=== PATIENT | female | born 1945 | race Caucasian/White ===

== ENCOUNTER 2018-10-21 17:04 | Inpatient (IN) | payer MEDICARE, OTHER ==
[~2018-10-21] VITALS: Ht 167.6 cm; Wt 96.6 kg
[2018-10-21 18:28] LABS: BASOPHILS % 0.5 % (0.0-1.0); EOSINOPHILS # (AUTO) 0.4 (0.0-0.4); EOSINOPHILS % 4.1 % (0.0-6.0); HEMATOCRIT 36.1 % (34.2-44.1); LYMPHOCYTES # (AUTO) 2.8 (1.0-3.2); LYMPHOCYTES % 33.1 % (18.0-39.1); MEAN CORPUSCULAR HEMOGLOBIN 29.1 pg (28-32); MEAN CORPUSCULAR HGB CONC 33.2 g/dL (31-35); MEAN CORPUSCULAR VOLUME 87.6 fL (81-99); MONOCYTES # (AUTO) 0.9 (0.2-0.8); MONOCYTES % 10.3 % (4.4-11.3); NEUTROPHILS # (AUTO) 4.4 (2.1-6.9); NEUTROPHILS % 51.8 % (38.7-80.0); PLATELET COUNT 171 x10e3/uL (140-360); RED BLOOD COUNT 4.12 x10e6/uL (3.6-5.1); RED CELL DISTRIBUTION WIDTH 17.8 % (11.7-14.4)
[2018-10-21 18:32] LABS: INR 0.89; PARTIAL THROMBOPLASTIN TIME 26.9 seconds (23.8-35.5); PROTHROMBIN TIME 12.9 seconds (11.9-14.5)
[2018-10-21 18:39] LABS: ALBUMIN/GLOBULIN RATIO 1.1 (0.8-2.0); ANION GAP 12.1 mmol/L (8-16); CALCIUM 8.8 mg/dL (8.4-10.2); CREATININE, SERUM 1.2 mg/dL (0.57-1.11)
[2018-10-21 18:46] LABS: CREATINE KINASE MB 4.4 ng/mL (0-5.0)
[2018-10-21 18:48] LABS: POTASSIUM 2.1 mmol/L (3.5-5.1)
[2018-10-21] MEDS ORDERED: POTASSIUM CHLORIDE 10MEQ/100ML 100 ML IV ONE (19:00)
--- NOTE | 2018-10-21 19:13 | Diagnostic Imaging Report ---
EXAMINATION: CHEST SINGLE (PORTABLE) INDICATION: ^CHEST PAIN ^20181021 ^1850 ^Y COMPARISON: None FINDINGS: AP view TUBES and LINES: None. LUNGS: Limited by body habitus and low lung volumes. Medial right basilar patchy opacities. Retrocardiac hazy opacification. PLEURA: No significant pleural effusion or pneumothorax. HEART AND MEDIASTINUM: The cardiomediastinal silhouette is enlarged on this AP view. Aorta is mildly calcified and tortuous. BONES AND SOFT TISSUES: No acute osseous lesion. Soft tissues are unremarkable. UPPER ABDOMEN: No free air under the diaphragm. IMPRESSION: Mild bibasilar p opacities, representing subsegmental atelectasis and/or pneumonia. Small left pleural effusion cannot be excluded. Signed by: Dr. Diogo Almanza MD on 10/21/2018 7:09 PM
--- OUTSIDE RECORDS SUMMARY | 2018-10-21 19:16 | XMS REPORT ---
Author Author [facility] Address Unknown Phone Unavailable Care Team Providers Care Production Mechanic Tin Cans Name Role Phone Nora ARAUJO Unavailable Unavailable Problems This patient has no known problems. Allergies, Adverse Reactions, Alerts This patient has no known allergies or adverse reactions. Medications This patient has no known medications. Results Test Description Test Time Test Comments Text Results Atomic Results Result Comments CHEST SINGLE (PORTABLE) 2018-10-21 19:07:00 [place] [address] Patient Name: CHRISTOFER CARDENAS MR #: [id number] : 1945 Age/Sex: 73/F Req #: [id number] Adm Physician: Ordered by: JEM ARAUJO MD Report #: [id number] Location: ER Room/Bed: Procedure: [id number] DX/CHEST SINGLE (PORTABLE) Exam Date: 10/21/18 Exam Time: 1849 REPORT STATUS: Signed EXAMINATION: CHEST SINGLE (PORTABLE) INDICATI ON: CHEST PAIN 20181021 Y COMPARISON: None FINDINGS: AP view TUBES and LINES: None. LUNGS: Limited by body habitus and low lung volumes. Medial right basilar patchy opacities. Retrocardiac hazy opacification. PLEURA: No significant pleural effusion or pneumothorax. HEART AND MEDIASTINUM: The cardiomediastinal silhouette is enlarged on this AP view. Aorta is mildly calcified and tortuous. BONES AND SOFT TISSUES: No acute osseous lesion. Soft tissues are unremarkable. UPPER ABDOMEN: No free air under the diaphragm. IMPRESSION: Mild bibasilar p opacities, representing subsegmental atelectasis and/or pneumonia. Small left pleural effusion cannot be excluded. Signed by: Dr. Diogo Waters MD on 10/21/2018 7:09 PM Dictated By: DIOGO WATERS MD 08 Transcribed By: TJ on 10/21/181908 COPY TO: JEM ARAUJO MD CT, BRAIN, WITHOUT CONTRAST 2018-07-28 16:54:[address] head without contrast 07/28/2018 4:53 PM CLINICAL HISTORY: Unspecified dementia with behavioral disturbance TECHNIQUE: Axial noncontrast CT images through the head were obtained. This examination was performed according to our departmental dose optimization program, which includes automated exposure control, adjustment of the mA and/or kV according to patient size, and/or use of iterated reconstruction technique. COMPARISON: None available FINDINGS: There is no hemorrhage, extra-axial collection, mass, hydrocephalus, or midline shift. There is mild microvascular ischemia in the supratentorial white matter. There is generalized parenchymal volume loss. The paranasal sinuses and mastoid air cells are well aerated. The skull is intact. There is a punctate calcification in the superficial lobe of the left parotid gland. IMPRESSION: No intracranial hemorrhage or mass effect. Chronic appearing microvascular and involutional changes. If concern for acute pathology persists, further evaluation with MRI is recommended. Signed: Abdi Harp MDR[facility] Verified Date/Time: 07/28/2018 16:54:45 Reading Location: [facility] B1 C013V Neuro Reading Room
--- OUTSIDE RECORDS SUMMARY | 2018-10-21 19:16 | XMS REPORT | Clinical Summary ---
Author Author [facility] Organization [facility] Address Unknown Phone Unavailable Care Team Providers Care Experimental Mechanic Electrical Name Role Phone Kenan Murdock MD PCP Allergies Not on File Medications Not on file Active Problems Not on file Encounters Care Team Description Date Type Specialty Kenan Murdock MD Alzheimer's dementia with behavioral disturbance, unspecified timing of dementia onset 07/28/2018 Hospital Radiology Encounter Kenan Murdock MD Alzheimer's dementia with behavioral disturbance, unspecified timing of dementia onset (Primary Dx) 2018 Outside Orders Central Scheduling after 10/20/2017 Social History Date Tobacco Use Types Packs/Day Years Used Never Assessed Sex Assigned at Date Recorded Not on file Industry Job Start Date Occupation Not on file Not on file Not on file Travel End Travel History Travel Start No recent travel history available. Last Filed Vital Signs Not on file Plan of Treatment Not on file Procedures Comments Procedure Name Priority Date/Time Associated Diagnosis CT BRAIN WITHOUT IV Routine 07/28/2018 Alzheimer's dementia with CONTRAST 4:08 PM CDT behavioral disturbance, unspecified timing of dementia onset after 10/20/2017 Results * CT Brain without IV Contrast (07/28/2018 4:08 PM CDT) Narrative Performed At FINAL REPORT [employer] [facility] CT head without contrast 07/28/2018 4:53 PM [...] evaluation with MRI is recommended. Signed: Abdi Fuentes MD Report Verified Date/Time:07/28/2018 16:54:45 Reading Location: [address] Neuro Reading Room Procedure Note Interface, External Ris In - 07/28/2018 4:56 PM CDT FINAL REPORT CT head without contrast 07/28/2018 [...] evaluation with MRI is recommended. Signed: Abdi Fuentes MD Report Verified Date/Time: 07/28/2018 16:54:45 Reading Location: [address] Neuro Reading Room Performing Organization Address City/State/Zipcode Phone Number RIS after 10/20/2017 Insurance Payer Benefit Subscriber ID Type Phone Address Plan / Group MEDICARE MEDICARE A xxxxxxxxxx Medicare B MCR SUPPLEMENT/INDIVIDUAL GENERIC xxxxxxxxx [employer] MEDICARE SUPPLEMENT
[2018-10-21] MEDS ORDERED: POTASSIUM CHLORIDE 10MEQ EA PO SCH (20:00)
[2018-10-21] MEDS ORDERED: POTASSIUM CHLORIDE 10MEQ/100ML 300 ML IV ONE (21:00)
[2018-10-21] MEDS ORDERED: ROPINIROLE HCL1 MG PO (21:28)
[2018-10-21] MEDS ORDERED: CYMBALTA30 MG PO (21:28)
[2018-10-21] MEDS ORDERED: LEVOTHYROXINE112 MCG PO (21:28)
[2018-10-21] MEDS ORDERED: LOSARTAN-HCTZ1 EAC1 PO (21:28)
[2018-10-21] MEDS ORDERED: CARVEDILOL12.5 MG PO (21:28)
[2018-10-21] MEDS ORDERED: AMITIZA24 MCG PO (21:28)
[2018-10-21] MEDS ORDERED: SEROQUEL25 MG PO (21:28)
[2018-10-21] MEDS ORDERED: PROPRANOLOL HCL80 MG PO (21:28)
[2018-10-21] MEDS ORDERED: TRAZODONE HCL50 MG PO (21:28)
[2018-10-21] MEDS ORDERED: MAGNESIUM SULFATE 2GM/50ML 50 ML IV ONE (21:30)
--- NOTE | 2018-10-22 05:21 | NUR ---
PATIENT HAS NO PRESSURE ULCER TO SACRUM OR BACK
[2018-10-22 05:45] LABS: BASOPHILS % 0.5 % (0.0-1.0); EOSINOPHILS # (AUTO) 0.3 (0.0-0.4); EOSINOPHILS % 4.4 % (0.0-6.0); HEMATOCRIT 34.2 % (34.2-44.1); HEMOGLOBIN 11.1 g/dL (12.0-16.0); LYMPHOCYTES # (AUTO) 3.2 (1.0-3.2); LYMPHOCYTES % 43.5 % (18.0-39.1); MEAN CORPUSCULAR HEMOGLOBIN 28.9 pg (28-32); MEAN CORPUSCULAR HGB CONC 32.5 g/dL (31-35); MEAN CORPUSCULAR VOLUME 89.1 fL (81-99); MONOCYTES # (AUTO) 0.7 (0.2-0.8); MONOCYTES % 9.4 % (4.4-11.3); NEUTROPHILS # (AUTO) 3.1 (2.1-6.9); NEUTROPHILS % 42.1 % (38.7-80.0); PLATELET COUNT 151 x10e3/uL (140-360); RED BLOOD COUNT 3.84 x10e6/uL (3.6-5.1); RED CELL DISTRIBUTION WIDTH 17.9 % (11.7-14.4)
[2018-10-22 06:15] LABS: ALBUMIN 2.7 g/dL (3.5-5.0); ALBUMIN/GLOBULIN RATIO 1.1 (0.8-2.0); ANION GAP 12.6 mmol/L (8-16); CALCIUM 8.4 mg/dL (8.4-10.2); CREATININE, SERUM 1.02 mg/dL (0.57-1.11); MAGNESIUM 1.4 MG/DL (1.3-2.1)
[2018-10-22 06:17] LABS: POTASSIUM 2.6 mmol/L (3.5-5.1)
[2018-10-22 06:22] LABS: CREATINE KINASE MB 2.5 ng/mL (0-5.0)
[2018-10-22] MEDS ORDERED: MAGNESIUM SULFATE 2GM/50ML 50 ML IV ONE (06:30)
[2018-10-22] MEDS ORDERED: POTASSIUM CHLORIDE 20MEQ/15ML UDC PO ONE (06:30)
[2018-10-22] MEDS ORDERED: MAGNESIUM SULF 1GRAM/DEXTROSE 100 ML IV ONE ×2 (06:30→11:15)
[2018-10-22] MEDS: POTASSIUM CHLORIDE 10MEQ/100ML 100 ML IV SCH ×4 (06:38→09:45)
--- NOTE | 2018-10-22 06:58 | NUR ---
RECEIVED REPORT FROM CAROLIN FOR CONTINUATION OF CARE
--- NOTE | 2018-10-22 06:58 | NUR ---
REPORT GIVEN TO LEO ESCALONA
--- NOTE | 2018-10-22 07:53 | NUR ---
BREAKFAST TRAY DELIVERED. PATIENT WAS REPOSITIONED IN BED TO EAT. FAMILY AT BEDSIDE FEEDING PATIENT.
[2018-10-22] MEDS ORDERED: POTASSIUM CHLORIDE 20MEQ/100ML 200 ML IV ONE (08:00)
[2018-10-22] MEDS ORDERED: HYDRALAZINE HCL 20 MG/ML VIAL IV PRN (08:15)
[2018-10-22] MEDS ORDERED: ONDANSETRON HCL INJ 2 MG/ML VIAL IV PRN (08:15)
[2018-10-22] MEDS ORDERED: POTASSIUM CHLORIDE 20 MEQ TAB CR PO NR (08:30)
--- NOTE | 2018-10-22 09:58 | NUR ---
VENOUS DOPPLER IN PROGRESS AT BEDSIDE
--- NOTE | 2018-10-22 10:40 | NUR ---
INCONTINENCE CARE DONE. PT HAD SMALL BM
[2018-10-22] MEDS: ROPINIROLE HCL 1 MG TAB PO SCH ×3 (10:45→21:41)
[2018-10-22] MEDS: QUETIAPINE FUMARATE 25 MG TAB PO SCH ×2 (10:45→21:42)
[2018-10-22] MEDS: DULOXETINE HCL 30 MG DELAYED RELEASE PO SCH ×2 (10:45→17:22)
[2018-10-22] MEDS: METOCLOPRAMIDE HCL 10 MG/2ML VIAL IV SCH ×3 (10:58→21:47)
[2018-10-22] MEDS: LUBIPROSTONE 24 MCG CAP PO SCH (11:01)
--- NOTE | 2018-10-22 13:00 | NUR ---
WILL PASS ON IN REPORT TO RECEIVING NURSE THAT WE HAVE BEEN UNABLE TO COLLECT THE URINE YET. EACH TIME THAT WE TRIED TO COLLECT THE PATIENT HAD BOWEL MOVEMENT MIXED IN WITH THE URINE AND HAVE NOT ABLE TO DO STRAIGHT CATH BECAUSE PATIENT BECOMES VERY COMBATIVE AND CONTINUOUSLY KICKS AND HITS
--- NOTE | 2018-10-22 13:15 | NUR ---
REPORT GIVEN TO JUANA FOR ADMIT. UPDATED FAMILY ON ROOM ASSIGNMENT.
[2018-10-22 14:00] VITALS: BP 113/87
--- NOTE | 2018-10-22 15:00 | NUR ---
PT ALERT TO SELF, RESP EVEN AND UNLABORED, SOME CONFUSION AT THIS TIME, PT NOT ABLE TO MAKE NEEDS KNOWN, PT HAS FAMILY MEMBER AT BEDSIDE, PT ORIENTED TO ROOM AND CALL LIGHT, BED IN LOWEST POSITION, BED RAILS UP X 2. CALL LIGHT IN REACH.
[2018-10-22] MEDS ORDERED: ALPRAZOLAM 0.5 MG TAB PO PRN (15:30)
[2018-10-22 15:45] VITALS: BP 113/87
[2018-10-22 15:59] LABS: CREATINE KINASE MB 4.2 ng/mL (0-5.0)
--- NOTE | 2018-10-22 16:00 | NUR ---
Drapery Cutter Machine to bedside to discuss plan of care with patient/family. CM/SW role and care transitions discussed. Anticipated discharge plan discussed along with duration of care. CM/SW discussed patients right to make decisions in care. CM/SW work hours given. Patient lives: at [facility], her lives there and cares for her in the evening. Pt is taken to Memory Care during the day Admit/Transfer: Admit thru ED POA/Emergency contact: son Pieter Madera [phone] Current/Previous Home Health: Per son, will be set up thru [facility] once she returns PCP/Follow-up Care: Current/Previous DME: walker, mainly uses wheelchair Other Services: n/a Employment Status: n/a Areas of Concerns: n/a Referral Needs: n/a Education Needs: n/a IMM/DIAZ given and signed (if applicable): DIAZ Goal for discharge: return to [facility], son will provide transportation CM/SW left business card at the bedside with contact information. Name and number was also written on the patients whiteboard. Patient verbalized understanding of discussion. CM will follow-up with ongoing discharge and transition of care needs.
[2018-10-22 16:22] VITALS: BP 113/87
--- NOTE | 2018-10-22 19:02 | NUR ---
REPORT GIVEN TO ONCOMING NURSE.
[2018-10-22] MEDS: ACETAMINOPHEN 325 MG TAB PO PRN (19:36)
[2018-10-22] MEDS: TRAZODONE HCL 50 MG TAB PO SCH (21:41)
[2018-10-22 21:47] VITALS: BP 113/87
[2018-10-23] VITALS (7 sets, daily range): BP systolic 92–103; BP diastolic 54–78
[2018-10-23 04:45] LABS: BASOPHILS # (AUTO) 0.1 (0.0-0.1); BASOPHILS % 0.5 % (0.0-1.0); EOSINOPHILS # (AUTO) 0.4 (0.0-0.4); EOSINOPHILS % 3.4 % (0.0-6.0); HEMATOCRIT 42.3 % (34.2-44.1); HEMOGLOBIN 13.8 g/dL (12.0-16.0); LYMPHOCYTES # (AUTO) 3.9 (1.0-3.2); LYMPHOCYTES % 37.9 % (18.0-39.1); MEAN CORPUSCULAR HEMOGLOBIN 29.4 pg (28-32); MEAN CORPUSCULAR HGB CONC 32.6 g/dL (31-35); MONOCYTES # (AUTO) 0.7 (0.2-0.8); MONOCYTES % 6.7 % (4.4-11.3); NEUTROPHILS # (AUTO) 5.3 (2.1-6.9); NEUTROPHILS % 51.1 % (38.7-80.0); PLATELET COUNT 204 x10e3/uL (140-360); RED CELL DISTRIBUTION WIDTH 18.1 % (11.7-14.4)
[2018-10-23 05:27] LABS: ANION GAP 15.6 mmol/L (8-16); CREATININE, SERUM 1.05 mg/dL (0.57-1.11)
[2018-10-23 05:52] LABS: POTASSIUM 2.6 mmol/L (3.5-5.1)
[2018-10-23] MEDS ORDERED: LEVOTHYROXINE SODIUM 112 MCG TAB PO SCH (06:00)
[2018-10-23] MEDS ORDERED: LEVOTHYROXINE SODIUM 75 MCG TAB PO SCH (06:00)
--- NOTE | 2018-10-23 06:23 | NUR ---
CALL PLACED TO DR DRUMMOND NUMBER,SPOKE WITH JESSIE SHIELDS OF DR DRUMMOND,NOTIFIED PT'S POTASSIUM LEVEL,N/O RECEIVED AND ENTERED.
[2018-10-23 06:45] LABS: FREE T4 (FREE THYROXINE) 1.08 ng/dL (0.9-1.8); THYROID STIMULATING HORMONE 42.89 uIU/mL (0.350-4.940)
[2018-10-23] MEDS ORDERED: POTASSIUM CHLORIDE 20MEQ/100ML 300 ML IV ONE (07:00)
--- NOTE | 2018-10-23 07:12 | NUR ---
REPORT GIVEN TO ONCOMING NURSE,WALKING ROUNDS MADE.
[2018-10-23] MEDS: DULOXETINE HCL 30 MG DELAYED RELEASE PO SCH ×2 (09:14→17:33)
[2018-10-23] MEDS: ROPINIROLE HCL 1 MG TAB PO SCH ×3 (09:14→21:00)
[2018-10-23] MEDS: LUBIPROSTONE 24 MCG CAP PO SCH (09:14)
[2018-10-23] MEDS: QUETIAPINE FUMARATE 25 MG TAB PO SCH ×2 (09:14→21:00)
[2018-10-23] MEDS ORDERED: POTASSIUM CHLORIDE 20MEQ/100ML 200 ML IV ONE (09:30)
[2018-10-23] MEDS: METOCLOPRAMIDE HCL 10 MG/2ML VIAL IV SCH ×4 (10:21→21:00)
[2018-10-23] MEDS: CEFTRIAXONE SOD 1 GM VIAL IV SCH ×2 (10:21→21:05)
[2018-10-23 10:40] LABS: CLARITY,URINE CLEAR (CLEAR); COLOR,URINE YELLOW (YELLOW); LEUKOCYTE ESTERASE ,URINE NEGATIVE (NEGATIVE)
[2018-10-23 10:41] LABS: BILIRUBIN,URINE NEGATIVE (NEGATIVE); KETONES,URINE NEGATIVE (NEGATIVE); NITRITE,URINE NEGATIVE (NEGATIVE); PROTEIN,URINE DIPSTICK NEGATIVE (NEGATIVE); URINE UROBILINOGEN 0.2 mg/dL (0.2 - 1)
[2018-10-23 11:03] LABS: BACTERIA,URINE FEW /HPF; EPITHELIAL CELLS,URINE MANY /LPF; RBC,URINE 0-5 /HPF (0-5); WBC,URINE (MAN) 0-5 /HPF (0-5)
--- NOTE | 2018-10-23 14:35 | Consultation ---
DATE OF CONSULTATION: October 23, 2018 REQUESTING PHYSICIAN: Dr. Marmolejo/Zuly Jasmine. REASON FOR CONSULTATION: Elevated troponin. HISTORY OF PRESENT ILLNESS: Ms. Madera is a 73-year-old lady with past medical history as listed below who was recently admitted to [facility] for dementia. Apparently, she had blood test drawn. The potassium was low and so she was sent to the hospital. Patient has advanced dementia. No history can be obtained from the patient. There are few family members at the bedside who relate most of the history. Patient apparently had symptoms of dementia in 2012 and has progressively worsened especially in the last 4 to 5 weeks. There is no history of chest pain, shortness of breath, or palpitations. There is no history of known coronary artery disease. Family do not want any aggressive measures or even considering hospice. She was noted to have elevated troponin, so I was consulted. REVIEW OF SYMPTOMS: Not obtainable. ALLERGIES: PENICILLIN AND NITROFURANTOIN. MEDICATIONS: See list. PAST MEDICAL HISTORY 1. History of hypertension. 2. History of dementia. 3. History of depression. 4. History hypothyroidism. 5. History of irritable bowel syndrome. 6. History of restless leg syndrome. PAST SURGICAL HISTORY 1. History of having had back surgery twice. 2. History of elbow surgery. 3. History of hysterectomy. 4. 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 5. History of hemorrhoidectomy. SOCIAL HISTORY: Does not smoke or drink. FAMILY HISTORY: Noncontributory. PHYSICAL EXAMINATION GENERAL: Well-built and nourished lady, who is awake, confused. VITAL SIGNS: Heart rate is 84, blood pressure is 99/74, respiratory rate is 18. HEENT: Atraumatic. NECK: No JVD, bruit, thyromegaly, or lymphadenopathy. CARDIOVASCULAR: First and second heart sounds heard. No murmurs, rubs, or gallops appreciated. CHEST: Decreased air entry at the bases. No adventitious sounds appreciated. ABDOMEN: Soft, nontender. EXTREMITIES: Trace edema. LABS: WBC is 10.2, hemoglobin is 13.8, hematocrit is 42.3, and platelets are 204. Sodium is 135, potassium 2.6, chloride 99, bicarb is 23, BUN is 12, creatinine 1.0, glucose is 114. Troponin is 0.056, 0.028, 0.710. TSH is 42.8. IMPRESSION 1. Hypokalemia. 2. Advanced dementia. 3. History of hypertension. 4. History of hypothyroidism. 5. History of depression. PLAN 1. Potassium is being supplemented. 2. Troponins are borderline. Patient has no chest pain. 3. Will get an echocardiogram to assess LV function and valvular function. 4. Family do not want any aggressive measures, want to keep her comfortable. 5. Will add baby aspirin to her regimen. 6. Will add statin. 7. Continue with other medications. 8. Discussed my impression and plan of management with the family and they understand. As always, I appreciate and thank you very much for your referrals Job#: [id number] KYLEIGH
[2018-10-23] MEDS ORDERED: METOPROLOL TARTRATE 25 MG TAB PO SCH (17:00)
--- NOTE | 2018-10-23 17:06 | NUR ---
FAMILY AT BEDSIDE. IMM LETTER EXPLAINED. MPOA / SON SIGNED. COPY TO CHART AND COPY TO FAMILY. INSTRUCTED TO KEEP ALL INFO IN THEIR TRANSITION CARE FOLDER. VERBALIZED UNDERSTANDING. FAMILY EXPRESSED THAT THEY DO NOT WANT THE PT TO RECEIVE ANYTHING EXTRA OUTSIDE OF THE K INFUSION. THEY STATE IF THE PT HAS ANOTHER EPISODE OF THE K DROPPING, THEY WILL SEEK HOSPICE AT THAT TIME. STATE THE PT HAS ALZHEIMER'S AND THEY KNOW IT IS NOT GETTING ANY BETTER AND DO NOT WISH TO HAVE ANY EXTREME MEASURES TAKEN, NO GTUBE, NO ECHO. CM VERBALIZED UNDERSTANDING SHARED THIS INFO W BEDSIDE NURSE. SHE WAS ALREADY AWARE. DISCUSSED DNR W BEDSIDE NURSE. INFORMED PT HAD AN OUT OF HOSPITAL DNR PER THE FAMILY.
[2018-10-23] MEDS: ACETAMINOPHEN 325 MG TAB PO PRN (17:32)
[2018-10-23] MEDS ORDERED: MELATONIN 3 MG TAB PO SCH (21:00)
[2018-10-23] MEDS: TRAZODONE HCL 50 MG TAB PO SCH (21:00)
[2018-10-23] MEDS ORDERED: ATORVASTATIN 20 MG TAB PO SCH (21:00)
[2018-10-24 00:45] VITALS: BP 106/68
--- NOTE | 2018-10-24 03:17 | NUR ---
PT RESTING IN BED WITH NO S/S OF DISTRESS.RESPIRATIONS EVEN/NON LABORED.BLOOD DRAWN FOR LAB AT THIS TIME,PT TOLERATED WELL.BED ALARM ON.BED IN LOWEST/LOCKED POSITION.CALL LIGHT WITHIN EASY REACH.
[2018-10-24 03:23] LABS: BASOPHILS % 0.3 % (0.0-1.0); EOSINOPHILS # (AUTO) 0.4 (0.0-0.4); EOSINOPHILS % 3.4 % (0.0-6.0); HEMATOCRIT 36.9 % (34.2-44.1); HEMOGLOBIN 12.2 g/dL (12.0-16.0); LYMPHOCYTES # (AUTO) 3.3 (1.0-3.2); LYMPHOCYTES % 28.3 % (18.0-39.1); MEAN CORPUSCULAR HEMOGLOBIN 29.5 pg (28-32); MEAN CORPUSCULAR HGB CONC 33.1 g/dL (31-35); MEAN CORPUSCULAR VOLUME 89.3 fL (81-99); MONOCYTES # (AUTO) 1.1 (0.2-0.8); MONOCYTES % 9.5 % (4.4-11.3); NEUTROPHILS # (AUTO) 6.7 (2.1-6.9); NEUTROPHILS % 58.2 % (38.7-80.0); PLATELET COUNT 172 x10e3/uL (140-360); RED BLOOD COUNT 4.13 x10e6/uL (3.6-5.1); RED CELL DISTRIBUTION WIDTH 18.2 % (11.7-14.4)
[2018-10-24 03:38] LABS: CREATININE, SERUM 1.16 mg/dL (0.57-1.11); MAGNESIUM 1.5 MG/DL (1.3-2.1)
[2018-10-24 05:00] VITALS: BP 100/72
[2018-10-24] MEDS ORDERED: LEVOTHYROXINE SODIUM 100 MCG TAB PO SCH (06:00)
[2018-10-24] MEDS ORDERED: LEVOTHYROXINE SODIUM 75 MCG TAB PO SCH (06:00)
--- NOTE | 2018-10-24 06:13 | NUR ---
CALLED LUH KHAN TO REPORT POTASSIUM LEVEL OF 3.0,NO NEW ORDERS RECEIVED AT THIS TIME,[facility]H KHAN STATED THAT ITS NOT CRITICAL.
--- NOTE | 2018-10-24 07:09 | NUR ---
REPORT GIVEN TO ONCOMING NURSE,WALKING ROUNDS MADE.
[2018-10-24 07:30] VITALS: BP 100/72
[2018-10-24] MEDS: METOCLOPRAMIDE HCL 10 MG/2ML VIAL IV SCH (07:30)
[2018-10-24] MEDS ORDERED: POTASSIUM CHLORIDE 20MEQ/100ML 300 ML IV ONE (08:00)
[2018-10-24] MEDS: LUBIPROSTONE 24 MCG CAP PO SCH ×2 (08:00→09:15)
[2018-10-24] MEDS ORDERED: FUROSEMIDE INJ 10 MG/ML 2 ML VIAL IV NR (08:15)
[2018-10-24] MEDS: ROPINIROLE HCL 1 MG TAB PO SCH (09:00)
[2018-10-24] MEDS: DULOXETINE HCL 30 MG DELAYED RELEASE PO SCH (09:00)
[2018-10-24] MEDS: QUETIAPINE FUMARATE 25 MG TAB PO SCH (09:00)
[2018-10-24] MEDS ORDERED: ASPIRIN 81 MG CHEW TAB PO SCH (09:00)
[2018-10-24] MEDS ORDERED: ASPIRIN 325 MG TAB PO SCH (09:00)
[2018-10-24 09:16] VITALS: BP 98/52
--- NOTE | 2018-10-24 10:40 | NUR ---
Initiated contact with [facility] @ [phone] to advocate for the family to place the patient, Leslie Madera, on hospice care starting today. The family verbalized that they would like to withdraw treatment at this time and "let nature take its course". The son, the SAMANTA, (copy in the chart), expressed that the family chose [facility] and he spoke with the patients shelter, [facility] where [facility] has a relationship. The family is aware that the publications sales representative from Hospice will be coming today to obtain consent and explain what Hospice has to offer. Jaimie, the AOC this weekend, called @ 10:55 and explained to me that the nurse will not be able to evaluate the patient until tomorrow, Thursday10/25/18.
[2018-10-24] MEDS ORDERED: ONDANSETRON HCL INJ 2 MG/ML VIAL IV PRN (11:00)
[2018-10-24] MEDS ORDERED: LORAZEPAM 1 MG TAB PO PRN (11:00)
[2018-10-24] MEDS ORDERED: ALBUTEROL/IPRATROPIUM 3 ML NEB NEB PRN (11:00)
[2018-10-24] MEDS ORDERED: MORPHINE SULFATE INJ 4 MG/ML INJ IV PRN (11:00)
--- NOTE | 2018-10-24 11:30 | NUR ---
patients family requests no vital signs at this time, will continue to monitor
[2018-10-24 20:59] VITALS: BP 98/62
[2018-10-24 23:45] VITALS: BP 102/60
[2018-10-25 05:18] VITALS: BP 106/68
--- NOTE | 2018-10-25 07:21 | NUR ---
REPORT GIVEN TO ONCOMING NURSE,WALKING ROUNDS MADE,PT RESTING IN BED WITH NO S/S OF DISTRESS.
[2018-10-25 08:00] VITALS: BP 91/55
--- NOTE | 2018-10-25 08:00 | NUR ---
Verbal order per PA to refrain from all services unless family requests assistance. The pt. is currently being worked up for hospice care @ [facility]
[2018-10-25 08:41] VITALS: BP 91/55
--- NOTE | 2018-10-25 10:53 | NUR ---
SPOKE WITH FAMILY GOT CHOICE SIGNED AFTER THE NURSE SUBMITTED INFORMATION TO HOSPICE. FILED IN CHART. GOT IMM LETTER SIGNED AND FILED IN CHART. FILLED OUT RTF FORM TO RETURN PATIENT TO [facility]ED LIVING FAMILY SIGNED AMBULANCE PAGE BUT STATES DOES NOT CARE WHICH TRANSPORT COMPANY TO USE. SPOKE WITH ISMAEL AT [facility] [phone]. THEY WILL ACCEPT PATIENT WHEN RETURN TO FACILITY. THEY HAVE ALREADY SIGNED ALL PAPERWORK AND ADMITTED FINANCIALLY ON THURSDAY AND WILL CLINICALLY TAKE OVER CARE UPON RETURN TO [facility], [facility] [address], [facility] [id number]. . CM NOTIFIED AND REQUEST FOR ORDER FOR DISCHARGE TO FACILITY SENT.
[2018-10-25] MEDS ORDERED: MELATONIN 3 MG TAB PO SCH (21:00)
--- NOTE | 2018-10-26 05:27 | Discharge Summary ---
ADMISSION DIAGNOSES 1. Hypokalemia. 2. Hypomagnesemia. 3. Acute kidney injury versus chronic kidney disease. 4. Hypertension. 5. Hypothyroidism. 6. Poor appetite. 7. Depression. 8. Irritable bowel syndrome. 9. Restless leg syndrome. 10. Insomnia. 11. Bilateral lower extremity discoloration and tenderness. DISCHARGE DIAGNOSES 1. Hypokalemia. 2. Hypomagnesemia. 3. Acute kidney injury versus chronic kidney disease. 4. Hypertension. 5. Hypothyroidism. 6. Poor appetite. 7. Depression. 8. Irritable bowel syndrome. 9. Restless leg syndrome. 10. Insomnia. 11. Bilateral lower extremity discoloration and tenderness. 12. Rule out deep vein thrombosis. 13. Hyponatremia. 14. Leukocytosis. 15. Urinary tract infection. HISTORY: The patient's history includes hypertension, hypothyroidism, Alzheimer disease, depression, IBS, RLS, insomnia. SURGICAL HISTORY: Back surgery x2, left elbow surgery, hysterectomy, hemorrhoidectomy, kidney removal, family is unsure of which kidney. FAMILY HISTORY: The patient's grandmother had diabetes. The patient's sister had cancer. HOSPITAL COURSE: A 73-year-old female, admitted from [facility] due to electrolyte imbalances. She has had poor intake over the last 3 months per family. They report no nausea, vomiting or diarrhea. HPI and history from family as the patient has AMS. On admission, the patient's potassium was 2.1, mag was 1.0, both were repleted. The patient was started Reglan due to poor appetite and home meds for the rest of her medical issues. The patient's appetite started to improve with the Reglan and it took about 2 or 3 days to replete her potassium sufficiently. At that point, the family decided to make the patient DNR. The patient's third troponin was also a little bit elevated at 0.710. Cardiology was consulted and echo was ordered. The family refused the echo due to the DNR status. They decided that they wanted to go ahead and make her hospice and stop all medicines and comfort measures only. So, the patient was discharged back to [facility] with hospice. Vital signs were stable and the patient afebrile prior to discharge. Dictated by: Zuly Jasmine NP KELLI DRUMMOND MD Job#: [id number] GE
== END 2018-10-25 15:53 | disposition hospice, home (50) | DRG 683 ==
LOC: ER 17:04 → ERHOLD 18:59 → OBSVTOIN 10-22 14:26 → MED/SURG2 10-22 14:28
PROVIDERS: ADMIT Internal Medicine; ATTEND Internal Medicine
DX: N17.9 Acute kidney failure, unspecified (principal); N39.0 Urinary tract infection, site not specified; E87.1 Hypo-osmolality and hyponatremia; E87.6 Hypokalemia; N18.9 Chronic kidney disease, unspecified; K58.9 Irritable bowel syndrome, unspecified; Z51.5 Encounter for palliative care; E86.0 Dehydration; F32.9 Major depressive disorder, single episode, unspecified; E83.42 Hypomagnesemia; G47.00 Insomnia, unspecified; G25.81 Restless legs syndrome; R63.0 Anorexia; E03.9 Hypothyroidism, unspecified; G30.1 Alzheimer's disease with late onset; F02.80 Dementia in other diseases classified elsewhere, unspecified severity, without behavioral disturbance, psychotic disturbance, mood disturbance, and anxiety; Z66 Do not resuscitate; I12.9 Hypertensive chronic kidney disease with stage 1 through stage 4 chronic kidney disease, or unspecified chronic kidney disease
CPT/HCPCS: 36415; 71045; 80048; 80053; 81001; 82550; 82553; 83735; 83880; 84439; 84443; 84484; 85025; 85610; 85730; 87086; 87186; 93005; 93970; 99283; 99285; G0378; J0696; J2765; J3475; J3480